=== PATIENT | male | born 1985 | race Caucasian/White ===

== ENCOUNTER 2019-08-21 21:12 | Inpatient (IN) | payer MEDICAID, OTHER ==
[~2019-08-21] VITALS: Ht 182.9 cm; Wt 107.6 kg
[2019-08-21] MEDS ORDERED: RISP2 PO (23:52)
[2019-08-21] MEDS ORDERED: LISI-661 PO (23:52)
[2019-08-22] LABS: BASOPHILS % (AUTO) 0.6 % (0.0-2.0); EOSINOPHILS % (AUTO) 2.1 % (1.0-6.0); HEMOGLOBIN 13.8 g/dL (13.5-17.5); LYMPHOCYTES # (AUTO) 2.6 K/uL (1.0-4.8); LYMPHOCYTES % (AUTO) 24.5 % (22.0-44.0); MEAN CORPUSCULAR HEMOGLOBIN 31.9 pg (26.0-34.0); MEAN CORPUSCULAR HGB CONC 34.4 G/dL (31.0-37.0); MEAN CORPUSCULAR VOLUME 93 fL (80-100); MONOCYTES # (AUTO) 0.6 K/uL (0.1-1.0); MONOCYTES % (AUTO) 5.9 % (2.0-9.0); NEUTROPHILS % (AUTO) 66.9 % (40.0-70.0); PLATELET COUNT (AUTO) 298 K/uL (150-450); RED BLOOD CELL COUNT(AUTO) 4.32 MIL/uL (4.50-5.90); RED CELL DISTRIBUTION WIDTH 13.7 % (11.5-14.5)
[2019-08-22 00:12] LABS: ANION GAP 7 mmol/L (8-16); CALCIUM, TOTAL 9.2 mg/dL (8.8-10.5); CARBON DIOXIDE 29 mmol/L (22-29); CHLORIDE 101 mmol/L (98-107); CREATININE 1.31 mg/dL (0.60-1.30); GLOMERULAR FILTR. RATE CALC > 60 mL/min (>60); GLUCOSE,RANDOM 126 mg/dL (70-110); POTASSIUM 3.9 mmol/L (3.5-5.1); SODIUM SERUM 137 mmol/L (136-145); UREA NITROGEN, BLOOD 19 mg/dL (7-18)
[2019-08-22 00:17] LABS: AMPHET/METH SCREEN,URINE NEGATIVE (NEGATIVE); BARBITURATE SCREEN, URINE NEGATIVE (NEGATIVE); BENZODIAZEPINES SCREEN,URINE NEGATIVE (NEGATIVE); CANNABINOID SCREEN,URINE NEGATIVE (NEGATIVE); COCAINE SCREEN,URINE NEGATIVE (NEGATIVE); METHADONE SCREEN, URINE NEGATIVE (NEGATIVE); OPIATE SCREEN,URINE NEGATIVE (NEGATIVE)
[2019-08-22 00:18] LABS: ALANINE AMINOTRANSFERASE 24 U/L (12-78); ALBUMIN 3.2 g/dL (3.4-5.0); ALKALINE PHOSPHATASE 103 U/L (46-116); ASPARTATE AMINOTRANSFERASE < 5 U/L (15-37); BILIRUBIN,TOTAL 0.2 mg/dL (0.1-1.0); TOTAL PROTEIN, SERUM 6.9 g/dL (6.4-8.2)
[2019-08-22 00:20] LABS: PHENCYCLIDINE SCREEN,URINE NEGATIVE (NEGATIVE)
[2019-08-22] MEDS ORDERED: HALOPERIDOL 5 MG TABLET PO PRN (01:00)
[2019-08-22] MEDS ORDERED: LORazepam 2 MG TABLET PO PRN (01:00)
[2019-08-22] MEDS ORDERED: ZOLPIDEM TARTRATE 10 MG TABLET PO PRN (01:00)
[2019-08-22 03:06] LABS: APPEARANCE,URINE CLEAR (CLEAR); BILIRUBIN,URINE NEGATIVE (NEGATIVE); GLUCOSE, URINE (UA) NEGATIVE (NEGATIVE); KETONES,URINE NEGATIVE (NEGATIVE); LEUKOCYTE ESTERASE ,URINE NEGATIVE (NEGATIVE); NITRATE,URINE NEGATIVE (NEGATIVE); OCCULT BLOOD,URINE NEGATIVE (NEGATIVE); PROTEIN,URINE SEE CONFIRM (NEGATIVE); UROBILINOGEN,URINE 0.2 mg/dL (<=1.0)
[2019-08-22 03:13] LABS: SULFOSALICYLIC ACID,URINE 4+ (Negative)
[2019-08-22 03:14] LABS: BACTERIA,URINE None Seen /HPF (None Seen); RBC,URINE None Seen /HPF (0-2); SQUAMOUS EPITHELIAL CELL,UR Rare /LPF (None Seen); WBC,URINE 0-2 /HPF (0-5)
[2019-08-22 03:42] VITALS: BP 113/92
[2019-08-22] MEDS ORDERED: PNEUMOCOCCAL VACCINE POLYVALENT 0.5 ML VIAL [PPSV23] IM ONE (05:30)
[2019-08-22] MEDS ORDERED: INFLUENZA VIRUS VACCINE QVS 2019-20 (3YR+)/PF 60 MCG/0.5 ML SYRINGE IM ONE (05:30)
[2019-08-22 10:00] VITALS: BP 133/86
[2019-08-22] MEDS ORDERED: LOPERAMIDE HCL 2 MG CAPSULE PO PRN (10:45)
[2019-08-22] MEDS ORDERED: CloNIDine HCL 0.1 MG TABLET PO PRN (10:45)
[2019-08-22] MEDS ORDERED: MAGNESIUM HYDROXIDE SUSPENSION 30 ML UDCUP PO PRN (10:45)
[2019-08-22] MEDS ORDERED: NICOTINE 14 MG/24 HOUR PATCH TD PRN (10:45)
[2019-08-22] MEDS ORDERED: MAG HYDROX/AL HYDROX/SIMETH ES 30 ML SUSPENSION UDCUP PO PRN (10:45)
[2019-08-22] MEDS ORDERED: DOCUSATE SODIUM 100 MG CAPSULE PO PRN (10:45)
[2019-08-22] MEDS ORDERED: PETROLATUM,WHITE 28 GM JELLY TP PRN (10:45)
[2019-08-22] MEDS ORDERED: IBUPROFEN 400 MG TABLET PO PRN (10:45)
[2019-08-22] MEDS ORDERED: ALBUTEROL SULFATE HFA 90 MCG/PUFF 8 GM INHALER IH PRN (10:45)
[2019-08-22] MEDS ORDERED: ONDANSETRON HCL 4 MG TABLET PO PRN (10:45)
[2019-08-22] MEDS ORDERED: ACETAMINOPHEN 325 MG TABLET PO PRN (10:45)
[2019-08-22] MEDS ORDERED: GuaiFENesin/D-METHORPHAN [SUGAR-FREE] 200-20MG/10 ML SYRUP UDCUP PO PRN (10:45)
[2019-08-22 17:39] VITALS: BP 109/74
[2019-08-23 08:39] VITALS: BP 132/95
[2019-08-23] MEDS ORDERED: FLUoxetine HCL 20 MG CAPSULE PO SCH (09:00)
[2019-08-23 09:03] LABS: CHOL/HDL RATIO 7.7 (4.2-7.3); CHOLESTEROL 261 mg/dL (131-200); HDL CHOLESTEROL 34 mg/dL (40-60); TRIGLYCERIDES 549 mg/dL (15-150)
[2019-08-23] MEDS: LISINOPRIL 10 MG TABLET PO SCH (09:51)
[2019-08-23 18:43] VITALS: BP 130/76
[2019-08-23] MEDS: RisperiDONE 2 MG TABLET PO SCH (20:58)
[2019-08-24] MEDS: FLUoxetine HCL 20 MG CAPSULE PO SCH (09:19)
[2019-08-24] MEDS: LISINOPRIL 10 MG TABLET PO SCH (09:19)
[2019-08-24 10:30] VITALS: BP 102/60
[2019-08-24 20:27] VITALS: BP 105/83
[2019-08-24] MEDS: RisperiDONE 2 MG TABLET PO SCH (22:49)
[2019-08-25 08:43] VITALS: BP 128/73
[2019-08-25] MEDS: LISINOPRIL 10 MG TABLET PO SCH (09:34)
[2019-08-25] MEDS: FLUoxetine HCL 20 MG CAPSULE PO SCH (09:35)
[2019-08-25 19:48] VITALS: BP 117/65
[2019-08-25] MEDS: RisperiDONE 2 MG TABLET PO SCH (20:06)
[2019-08-26 09:31] VITALS: BP 132/91
[2019-08-26] MEDS: FLUoxetine HCL 20 MG CAPSULE PO SCH (09:37)
[2019-08-26] MEDS: LISINOPRIL 10 MG TABLET PO SCH (09:37)
[2019-08-26 17:19] VITALS: BP 113/73
[2019-08-26] MEDS: RisperiDONE 2 MG TABLET PO SCH (20:20)
[2019-08-27 09:48] VITALS: BP 145/92
[2019-08-27] MEDS: FLUoxetine HCL 20 MG CAPSULE PO SCH (09:50)
[2019-08-27] MEDS: LISINOPRIL 10 MG TABLET PO SCH (09:50)
[2019-08-27 17:45] VITALS: BP 119/72
[2019-08-27] MEDS: RisperiDONE 2 MG TABLET PO SCH (20:51)
[2019-08-28] MEDS: FLUoxetine HCL 20 MG CAPSULE PO SCH (09:32)
[2019-08-28] MEDS: LISINOPRIL 10 MG TABLET PO SCH (09:32)
[2019-08-28 10:10] VITALS: BP 118/63
[2019-08-28 16:49] VITALS: BP 126/77
[2019-08-28] MEDS: RisperiDONE 2 MG TABLET PO SCH (20:41)
[2019-08-29] MEDS: LISINOPRIL 10 MG TABLET PO SCH (08:07)
[2019-08-29] MEDS: FLUoxetine HCL 20 MG CAPSULE PO SCH (08:07)
[2019-08-29 08:10] VITALS: BP 115/79
[2019-08-29 17:20] VITALS: BP 116/76
[2019-08-29] MEDS: RisperiDONE 2 MG TABLET PO SCH (20:20)
[2019-08-30 07:21] LABS: ANION GAP 6 mmol/L (8-16); CALCIUM, TOTAL 8.5 mg/dL (8.8-10.5); CARBON DIOXIDE 29 mmol/L (22-29); CHLORIDE 103 mmol/L (98-107); CREATININE 1.27 mg/dL (0.60-1.30); GLOMERULAR FILTR. RATE CALC > 60 mL/min (>60); GLUCOSE,RANDOM 110 mg/dL (70-110); POTASSIUM 4.9 mmol/L (3.5-5.1); SODIUM SERUM 138 mmol/L (136-145); UREA NITROGEN, BLOOD 25 mg/dL (7-18)
[2019-08-30 08:10] VITALS: BP 137/104
[2019-08-30] MEDS: FLUoxetine HCL 20 MG CAPSULE PO SCH (09:10)
[2019-08-30] MEDS: LISINOPRIL 10 MG TABLET PO SCH (09:10)
[2019-08-30 19:15] VITALS: BP 124/91
[2019-08-30] MEDS: RisperiDONE 2 MG TABLET PO SCH (20:43)
[2019-08-31 08:49] VITALS: BP 126/89
[2019-08-31] MEDS: FLUoxetine HCL 20 MG CAPSULE PO SCH (11:26)
[2019-08-31] MEDS: LISINOPRIL 10 MG TABLET PO SCH (11:26)
[2019-08-31 17:08] VITALS: BP 113/73
[2019-08-31] MEDS: RisperiDONE 2 MG TABLET PO SCH (20:09)
[2019-09-01 08:35] VITALS: BP 132/90
[2019-09-01] MEDS: FLUoxetine HCL 20 MG CAPSULE PO SCH (09:27)
[2019-09-01] MEDS: LISINOPRIL 10 MG TABLET PO SCH (09:27)
[2019-09-01] MEDS ORDERED: FLUO-191 PO (10:33)
[2019-09-01] MEDS ORDERED: RISP2 PO (10:33)
== END 2019-09-01 11:59 | DRG 751 ==
LOC: EMS 21:13 → 3EI 08-22 02:00
PROVIDERS: ADMIT Psychiatry & Neurology Psychiatry; ATTEND Psychiatry & Neurology Psychiatry
PROC: 3E02340 Introduction of Influenza Vaccine into Muscle, Percutaneous Approach (ICD-10-PCS; principal; 2019-08-22)
PROC: 3E0234Z Introduction of Serum, Toxoid and Vaccine into Muscle, Percutaneous Approach (ICD-10-PCS; 2019-08-22)
DX: F33.3 Major depressive disorder, recurrent, severe with psychotic symptoms (principal); R45.851 Suicidal ideations; D64.9 Anemia, unspecified; F41.9 Anxiety disorder, unspecified; R45.87 Impulsiveness; I12.9 Hypertensive chronic kidney disease with stage 1 through stage 4 chronic kidney disease, or unspecified chronic kidney disease; N18.9 Chronic kidney disease, unspecified; Z59.0 Homelessness; Z23 Encounter for immunization
CPT/HCPCS: 87081; 90686; 90732; G0480